=== PATIENT | female | born 1930 | race Caucasian/White ===

== ENCOUNTER → 2016-12-05 | Outpatient (CLI) | payer BC ==
[~2016-12-05] MED LIST: ASPEC81 PO; CRAN1CAP15 PO; GLC500 PO; GLCSUNK PO; LISI10TA PO; METO25TA56 PO; OMEP40CA PO
== END | disposition home or self-care (01) ==
LOC: C.LABMFLN 10:25
PROVIDERS: ATTEND Urology
DX: N20.0 Calculus of kidney (principal); N39.0 Urinary tract infection, site not specified; R33.9 Retention of urine, unspecified; R35.1 Nocturia

== ENCOUNTER → 2017-01-02 | Outpatient (CLI) | payer BC | END | disposition home or self-care (01) | LOC: C.LABMFLN 07:56 | PROVIDERS: ATTEND Urology | DX: N39.0 Urinary tract infection, site not specified (principal) ==

== ENCOUNTER → 2017-01-11 | Outpatient (CLI) | payer BC ==
--- NOTE | 2017-01-11 12:28 | DIAGNOSTIC IMAGING REPORT ---
ABDOMEN AND PELVIS CT WITHOUT CONTRAST CT DOSE: 481.94 mGy.cm HISTORY: Nephrocalcinosis N20.0 Nephrolithiasis valid TECHNIQUE: Multiaxial CT images of the abdomen and pelvis were performed without contrast. COMPARISON STUDY: None FINDINGS: Lung bases are clear. Small hiatal hernia. Prior cholecystectomy. Liver spleen and pancreas are uniform. 2.6 x 1.8 cm right adrenal mass. HISTORY: Of uterine measurements are 18 or less. 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 The upper pole of the right kidney shows 2 calcifications measuring 2 and 4 mm respectively. Lower pole of the right kidney demonstrates a 1 mm nonobstructing calcification. Left kidney demonstrates several scattered calcifications measuring from 2 to 4 mm at the lower mid and upper pole. The left adrenal is unremarkable. There is no evidence for hydronephrosis. There is no evidence for an obstructing urinary tract calculus. Bowel pattern is nonobstructive throughout. There are components of chronic sigmoid diverticulosis. There is a small fat-containing periumbilical hernia. This is a nonobstructive non bowel containing finding. IMPRESSION: 1. Bilateral nephrocalcinosis. 2. No evidence for an obstructing urinary tract calculus. 3. Chronic sigmoid diverticulosis with no evidence for acute diverticulitis. 4. 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 Electronically signed by: Jose Kelly M.D. 01/11/2017 12:27 PM Dictated Date/Time: 01/11/2017 12:22 PM
== END | disposition home or self-care (01) ==
LOC: C.CTS 10:58
PROVIDERS: ATTEND Urology
DX: E83.59 Other disorders of calcium metabolism (principal); N29 Other disorders of kidney and ureter in diseases classified elsewhere; K57.30 Diverticulosis of large intestine without perforation or abscess without bleeding; E27.9 Disorder of adrenal gland, unspecified

== ENCOUNTER → 2017-04-23 | Outpatient (CLI) | payer BC | END | disposition home or self-care (01) | LOC: C.LABMFLN 10:48 | PROVIDERS: ATTEND Urology | DX: N39.0 Urinary tract infection, site not specified (principal) ==

== ENCOUNTER → 2017-06-05 | Outpatient (CLI) | payer BC | END | disposition home or self-care (01) | LOC: C.LABMFLN 13:22 | PROVIDERS: ATTEND Urology | DX: N39.0 Urinary tract infection, site not specified (principal); N89.8 Other specified noninflammatory disorders of vagina ==

== ENCOUNTER → 2017-09-12 | Outpatient (CLI) | payer BC | END | disposition home or self-care (01) | LOC: C.LABMFLN 10:27 | PROVIDERS: ATTEND Family Medicine | DX: R30.0 Dysuria (principal) ==

== ENCOUNTER → 2017-10-10 | Outpatient (CLI) | payer BC | END | disposition home or self-care (01) | LOC: C.LABMFLN 14:33 | PROVIDERS: ATTEND Family Medicine | DX: R30.0 Dysuria (principal) ==